=== PATIENT | male | born 1970 ===

== ENCOUNTER 2018-09-28 07:33 | Outpatient (CLI) | payer OTHER ==
[~2018-09-28] VITALS: Ht 172.7 cm; Wt 129.3 kg
[2018-09-28] MEDS ORDERED: DERMOTIC20 ML OTIC (09:36)
== END 2018-09-28 07:45 | disposition home or self-care (01) ==
LOC: OFIC 805 07:33
DX: H60.8X3 Other otitis externa, bilateral (principal); J31.0 Chronic rhinitis

== ENCOUNTER 2018-12-14 09:15 | Outpatient (CLI) | payer OTHER ==
[~2018-12-14] VITALS: Ht 152.4 cm; Wt 129.3 kg
[~2018-12-14 09:15] MED LIST: DERMOTIC20 ML OTIC
[2018-12-14] MEDS ORDERED: CIPRO500 MG PO (11:33)
[2018-12-14] MEDS ORDERED: OFLOXACIN5 ML OTIC (11:33)
== END 2018-12-14 13:27 | disposition home or self-care (01) ==
LOC: OFIC 805 09:15
DX: H60.8X3 Other otitis externa, bilateral (principal); J31.0 Chronic rhinitis

== ENCOUNTER 2019-01-13 10:49 | Outpatient (CLI) | payer OTHER ==
[~2019-01-13] VITALS: Ht 152.4 cm; Wt 129.3 kg
[~2019-01-13 10:49] MED LIST changes: +CIPRO500 MG PO; +OFLOXACIN5 ML OTIC
== END 2019-01-13 15:21 | disposition home or self-care (01) ==
LOC: OFIC 805 10:49
DX: H60.8X3 Other otitis externa, bilateral (principal); J31.0 Chronic rhinitis; H90.3 Sensorineural hearing loss, bilateral

== ENCOUNTER 2019-01-18 09:54 | Outpatient (CLI) | payer OTHER ==
[~2019-01-18] VITALS: Ht 152.4 cm; Wt 129.3 kg
== END 2019-01-18 13:30 | disposition home or self-care (01) ==
LOC: OFIC 805 09:54
DX: H60.8X3 Other otitis externa, bilateral (principal); J31.0 Chronic rhinitis

== ENCOUNTER 2019-07-14 10:02 | Outpatient (CLI) | payer OTHER | END 2019-07-14 10:14 | disposition home or self-care (01) | LOC: LAB 10:02 | DX: J11.1 Influenza due to unidentified influenza virus with other respiratory manifestations (principal) ==

== ENCOUNTER 2019-07-20 11:36 | Outpatient (CLI) | payer OTHER | END 2019-07-20 11:37 | disposition home or self-care (01) | LOC: RAD 11:36 | DX: R05 Cough (principal) ==

== ENCOUNTER 2020-11-01 12:59 | Emergency (ER) | payer OTHER ==
[~2020-11-01] VITALS: Ht 172.7 cm; Wt 131.5 kg
[2020-11-01] MEDS ORDERED: ENALAPRIL MALEAT5 MG PO (13:16)
[2020-11-01] MEDS ORDERED: GLIMEPIRIDE4 M1 PO (13:17)
[2020-11-01] MEDS ORDERED: INDAPAMIDE2.5 MG PO (13:17)
[2020-11-01] MEDS ORDERED: HUMALOG KW100 UNIT/1 SQ (13:17)
[2020-11-01] MEDS ORDERED: ATORVASTATIN CA10 MG PO (13:17)
[2020-11-01] MEDS ORDERED: LANTUS SOL100 UNIT/1 (13:17)
[2020-11-01] MEDS ORDERED: METFORMIN HCL1000 M3 PO (13:18)
[2020-11-01] MEDS ORDERED: LIDOCAINE 2%-MU30 GM TOP (16:54)
== END 2020-11-01 16:58 | disposition home or self-care (01) ==
LOC: ER 12:59
DX: L27.1 Localized skin eruption due to drugs and medicaments taken internally (principal); T49.8X5A Adverse effect of other topical agents, initial encounter